=== PATIENT | female | born 2000 | race African-American/Black ===

== ENCOUNTER 2024-04-16 20:36 | Emergency (ER) | payer OTHER, SELFPAY ==
--- NOTE | ~2024-04-16 | XR_ITS ---
EXAMINATION: XR CHEST CLINICAL INFORMATION: Shortness of breath. Chest tightness. COMPARISON: None available. TECHNIQUE: Frontal view of the chest was obtained. FINDINGS: The heart is normal in size. The lungs are clear. The pleural spaces are clear. There is no pneumothorax. No acute osseous abnormality. XR/XR chest 1V IMPRESSION: No acute cardiopulmonary disease.
[2024-04-16 20:39] VITALS: BP 104/78; PULSE 91; RESP 16; TEMP 36.6; O2SAT 96; BMI 41.0
--- NOTE | 2024-04-16 21:27 | ED_ITS ---
HPI - SOB/Dyspnea General Chief Complaint: Dyspnea Stated Complaint: asthma Time Seen by Provider: 04/16/24 20:59 Source: patient Mode of arrival: ambulatory Limitations: no limitations History of Present Illness ED Provider: Dr. Idania Lafleur HPI Narrative: Patient comes to the emergency room complaining of asthma exacerbation. Patient states that she ran out of Advair and ProAir. Patient is any chest pain. Her symptoms have been present for about 3 days. Related Data Previous Rx's ?Medication ?Instructions ?Recorded albuterol sulfate 90 mcg/actuation 2 inh inhalation Q6H PRN shortness 04/16/24 breath activated powder of breath or wheezing #1 ea inhaler,sensor (Proair Digihaler) fluticasone propionate 115 2 puff inhalation BID #12 grams 04/16/24 mcg-salmeterol 21 mcg/actuation HFA inhaler (Advair HFA) prednisone 50 mg tablet 50 mg PO DAILY #5 tabs 04/16/24 Allergies Allergy/AdvReac Type Severity Reaction Status Date / Time No Known Allergies Allergy Verified 04/16/24 20:40 Review of Systems Review of Systems: Constitutional : No Weight loss, No Fever, No Chills, No Night Sweats, No Fatigue, No Malaise ENT/Mouth : No Hearing loss, No Ear Pain, No Nasal Congestion, No Sinus Pain, No Hoarseness, No sore throat, No Rhinorrhea, No Swallowing Difficulty Eyes: No Eye Pain, No Swelling, No Redness, No Foreign Body, No Discharge, No Vision Changes Cardiovascular : No Chest Pain, No SOB, No Dyspnea on Exertion, No Orthopnea, No Edema, No Palpitations Respiratory : No Cough, No Sputum, complaining of wheezing and shortness of breath Gastrointestinal : No Nausea, No Vomiting, No Diarrhea, No Constipation, No abdominal Pain, No Hematochezia, No Melena Genitourinary : no irregular bleeding, No Dysuria, No Urinary Frequency, No Hematuria, No Urinary Incontinence, No Urgency, No Flank Pain, No Urinary Flow Changes, No Hesitancy Musculoskeletal : No joint pain, No Myalgias, No Joint Swelling Skin : No Skin Lesions, No rash Neuro : No Weakness, No Numbness, No Paresthesias, No Loss of Consciousness, No Dizziness, No Headache Psych : No Anxiety/Panic, No Depression, No SI/HI/AH/VH, No Social Issues, Heme/Lymph: No Bruising, No Bleeding,No Lymphadenopathy Endocrine : No Polyuria, No Polydipsia, No Temperature Intolerance [facility] Past Medical History Medical History (Updated 04/16/24 @ 21:31 by Idania Lafleur MD) Asthma with exacerbation Social History Social History Advance Directives: No Advance Directives Information Provided: No Physical Exam Vital Signs: Vital Signs: Last Vital Signs Temp 97.8 F 04/16/24 20:39 Pulse 91 04/16/24 22:16 Resp 16 04/16/24 20:39 BP 104/78 04/16/24 20:39 Pulse Ox 100 04/17/24 00:00 O2 Del Method Room Air 04/16/24 20:39 BMI result Body Mass Index 41.0 Const: Other: Appearance: Alert. Oriented X3. No acute distress. Eyes: Pupils equal, round and reactive to light. ENT: Pharynx normal. Neck: Normal inspection. Neck supple. No lymph nodes noted. No crepitus CVS: Normal heart rate and rhythm. Pulses normal. Normal S1 and S2 Respiratory: No respiratory distress. Bilateral diffuse wheezing, fairly good air movement Abdomen: Soft and nontender. No rigidity. No distention. Skin: Skin warm and dry. Normal skin color. Normal skin turgor. Extremities: No lower extremity edema. No Lacerations. No Rash Neuro: Oriented X 3. No motor deficit. No sensory deficit. Moving all extremities. No slurred speech. CN 2 through 12 grossly intact Psych: calm, cooperative, normal affect Medications Administered Discontinued Medications Generic Name Dose Route Start Last Admin Trade Name Freq PRN Reason Stop Dose Admin Albuterol Sulfate 5 mg/ 7.5 mg 04/16/24 21:38 04/16/24 21:43 Albuterol Sulfate 2.5 mg INHALE 04/16/24 21:39 7.5 mg ONCE ONE Administration Albuterol Sulfate 7.5 mg/ 10 mg 04/16/24 22:08 04/16/24 22:14 Albuterol Sulfate 2.5 mg INHALE 04/16/24 22:09 10 mg ONCE ONE Administration Magnesium Sulfate 2 gm in 50 mls @ 25 mls/hr 04/16/24 21:15 04/16/24 22:02 Magnesium Sulfate/H2o IV 04/16/24 23:14 Infused ONCE ONE Infusion Methylprednisolone Sodium Succinate 125 mg 04/16/24 21:15 04/16/24 21:32 Methylprednisolone Sod Succ 125 Mg/2 Ml Vial IVPUSH 04/16/24 21:16 125 mg ONCE ONE Administration Medical Decision Making Medical Decision Making MDM Narrative: Patient receiving albuterol per Bronch protocol, IV Solu-Medrol and magnesium. -patient's medications have been sent to her pharmacy. -patient's oxygen saturation 99% on room air, no desaturations with exertion -my interpretation of chest x-ray: No acute findings -after the above-mentioned treatment, patient states that she feels much better. Patient walked around the emergency room maintaining an O2 saturation of 96%. -on physical exam for you to discharge, patient no longer wheezing. Differential Diagnosis Differential Diagnoses: The differential diagnosis associated with the presentation includes (Asthma) Admission/Observation Consideration of admission/observation: Escalation of care including admission/observation considered (Given patient's initial symptoms and presentation, observation was considered) Lab Data Labs: Lab Results 04/16/24 Range/Units 21:05 Influenza Type A (PCR) NEGATIVE (Negative) Influenza Type B (PCR) NEGATIVE (Negative) RSV RNA Qual (PCR) NEGATIVE (Negative) SARS-CoV-2 RNA (RT-PCR) NEGATIVE (Negative) Independent Interpretation I performed an independent interpretation of an: Plain X-Ray Radiology Impression Discussion of test interpretation with radiology: I have reviewed the radiologist's reading. Radiologist Impression: The heart is normal in size. The lungs are clear. The pleural spaces are clear. There is no pneumothorax. No acute osseous abnormality. XR/XR chest 1V IMPRESSION: No acute cardiopulmonary disease. Critical Care Time Critical Care Time Critical Care Time: Yes Total Critical Care Time: 30 Attestation: I have personally provided critical care time. Time includes review of lab data, radiology results, discussion with consultants, and monitoring for potential decompensation. Intervention performed as documented. Discharge Plan Discharge Clinical Impression: Asthma with exacerbation Patient Disposition: Home, Self-Care Instructions: Asthma (ED) Additional Instructions: Please follow-up with your primary care physician tomorrow. If you have any worsening or new symptoms, please return to the emergency room or call 911 Prescriptions: New Proair Digihaler 90 mcg/actuation aero powdr breath act w/sensor 2 inh inhalation Q6H PRN (Reason: shortness of breath or wheezing) Qty: 1 0RF fluticasone propion-salmeterol [Advair HFA] 115-21 mcg/actuation HFA aerosol inhaler 2 puff inhalation BID Qty: 12 0RF Rx Instructions: administer with spacer prednisone 50 mg tablet 50 mg PO DAILY Qty: 5 0RF Print Language: Portuguese
[2024-04-16] MEDS: Magnesium Sulfate/H2O 2 GM/50 ML PIGGYBACK IV (21:32)
[2024-04-16] MEDS: methylPREDNISolone Sod Succ 125 MG/2 ML VIAL IVPUSH (21:32)
[2024-04-16] MEDS: Albuterol Sulfate 5 MG, Albuterol Sulfate (0.083%) 2.5 MG 7.5 MG INHALE (21:43)
[2024-04-16 21:44] VITALS: PULSE 71; O2SAT 98
--- NOTE | 2024-04-16 21:50 | PC.NURSE ---
sats 97% on RA however bilat wheezing throughout. iv established. pt medicated per oct. speaking full clear sentences. RT at bedside for breathing tx at this time.
[2024-04-16 21:58] LABS: Influenza A PCR NEGATIVE (Negative); Influenza B PCR NEGATIVE (Negative); Resp Syncy Virus RNA Qual PCR NEGATIVE (Negative); SARS COV2 PCR INHOUSE NEGATIVE (Negative)
[2024-04-16] MEDS: Albuterol Sulfate 7.5 MG, Albuterol Sulfate (0.083%) 2.5 MG 10 MG INHALE (22:14)
[2024-04-16 22:16] VITALS: PULSE 91; O2SAT 99
--- NOTE | 2024-04-16 22:17 | PC.NURSE ---
mag infusion completed at [address] Lafleur verbal order. pt remains expiratory wheezing with sats 100% on RA. notified. Rt at bedside.
--- NOTE | 2024-04-16 23:03 | PC.NURSE ---
expiratory wheezing noted, resp even and unlabored sats 100% on RA. MD made aware. tachy on monitor 138 bpm. pt denies cp/sob feels relief with breathing tx. speaking full clear sentences.
[2024-04-17] VITALS: O2SAT 100
[2024-04-17 01:25] VITALS: BP 118/77; PULSE 80; RESP 17; O2SAT 100
[2024-04-17 01:35] VITALS: BP 126/58; PULSE 118; RESP 18; TEMP 36.8; O2SAT 100
== END 2024-04-17 00:10 | disposition home or self-care (01) ==
PROVIDERS: Emergency Provider Emergency Medicine
DX: R06.02 Shortness of breath (principal); R07.89 Other chest pain; Z03.818 Encounter for observation for suspected exposure to other biological agents ruled out
CPT/HCPCS: 0241U; 71045; 94640; 96365; 96375; 99284; 99285; J2919; J3475